=== PATIENT | male | born 1960 | race Caucasian/White ===

== ENCOUNTER 2017-05-26 09:17 | Emergency (ER) | payer OTHER, SELFPAY ==
[2017-05-26 09:30] VITALS: BP 119/83; PULSE 108; RESP 20; TEMP 36.8; O2SAT 96; BMI 28.1
--- NOTE | 2017-05-26 09:30 | XR_ITS ---
XR hand RT min 3V, HISTORY XR wrist RT min 3V Ordering Physician: Sancho Regan Patient Age: 56 years: Male HISTORY: ITS.REASON: FELL AT HOME TECHNIQUE: 3 views right wrist 3 views right hand COMPARISON : No prior. Patient denies prior fractures Findings: 3 VIEWS RIGHT WRIST 3 VIEWS RIGHT HAND The above images are reviewed together Understand patient has some pain at the proximal fifth finger and along the ulnar aspect of the hand. At the fifth finger note a mild broadening slight flaring towards the base of the proximal phalanx fifth finger. Possible slight exostosis versus overhang bone the lateral margin of the bone, just lateral to the fifth MCP joint. I am highly suspect of a prior fracture or injury here however the patient denied such per [facility]. If no fracture recalled this may merely congenital variation at this bone. No acute fracture identified at the proximal phalanx fifth finger. On the oblique view the wrist question slight lucency and mild angulation the mid fifth metacarpal, as if there has been an old minor fracture here.. Equivocal feature Otherwise conceivably could reflect a very subtle subtle early bone cyst but I believe less likely given the radiographic appearance. Not of acute significance There is also a fragment off the tip of the ulnar styloid more likely reflection of old trauma and fracture. Not acute finding. As margins appear corticated. Also understand majority of patient pain region of the anatomical snuffbox. No convincing fracture of navicular evident. The line at the lumpectomy most likely reflects a contour line but if there is pain focally at this does not box recommend splinting and follow-up. There is some mild swelling dorsally at the wrist. Carpal relationships appear normal. Distal radius appears intact and normal. IMPRESSION 1. Understand majority if pain is at the anatomical snuffbox. No convincing fracture of navicular on plain film but cannot exclude occult fracture given pain at the Snuffbox... Recommend splinting and follow-up 2. Proximal phalanx fifth finger demonstrates slight broadening at its proximal aspect with minimal focal osseous prominence or exostosis extending from the ulnar/medial margin of of its base.- I suspect old fracture sequela but patient denies history of fracture Also at fifth metacarpal question very subtle lucency in its midportion on the oblique view wrist. Question/suspect old fracture here vs or possible early subtle cystic feature?. These latter features may benefit from follow-up radiograph particularly if is pain at the fifth ray
--- NOTE | 2017-05-26 09:59 | HMH.EDUTC ---
[facility] [place] Clinical Impression: Wrist sprain Qualifiers: Encounter type: initial encounter Laterality: right Qualified Code(s): S63.501A - Unspecified sprain of right wrist, initial encounter Contusion of hand, right Qualifiers: Encounter type: initial encounter Qualified Code(s): S60.221A - Contusion of right hand, initial encounter Disposition: Home, Self-Care Condition on Discharge: Good Instructions: How to Use a Sling, DI for Wrist Sprain, DI for Contusion, How To Perform RICE (Rest, Ice, Compress, Elevate), How to Take Care of Your Splint Additional Instructions: * Rest * ice 15-20 mins 3-4 times a day * sling and splint for support and swelling until you see ortho. Be sure not too tight but not too loose either by checking your fingers like we discussed * Elevate as discussed as much as possible to help reduce swelling and therefore, pain * naproxen every 12 hours as needed for pain and inflammation. If you need something more, you can take tylenol every 4 hours as needed as long as your primary care provider has told you it is ok to take both. * No additional anti-inflammatories like motrin, aleve, advil with the above amount of naproxen. You CAN still take Tylenol every 4 hours as needed if you need something more for pain. Prescriptions: Naproxen 500 mg PO BID #20 tab Referrals: Keyur Rivera MD [Staff Physician] - (Call office today and schedule follow up appt. Let them know you were in [facility] [place], are in orthoglass splint and were told to follow up due to snuffbox tenderness.) Time of Disposition: 12:20 Medical Decision Making Vital Signs: 05/26/17 09:30 05/26/17 12:10 Temperature 98.2 F 98.7 F Temperature Source Temporal Artery Scan Pulse Rate 76 Pulse Rate [Right Radial] 108 H Respiratory Rate 20 20 Blood Pressure 120/73 Blood Pressure [Right Arm] 119/83 Blood Pressure Mean [Right Arm] 95 02 Sat by Pulse Oximetry 96 Oxygen Delivery Method Room Air Orders (Tests/Meds): ED MEDICATIONS Discontinued Medications Generic Name Dose Route Start Last Admin Trade Name Freq PRN Reason Stop Dose Admin Ketorolac Tromethamine 60 mg 05/26/17 10:44 05/26/17 10:44 Toradol 60mg/2ml Vial IM 05/26/17 10:45 60 mg ONCE ONE Administration ORDERS Category Date Time Status Wrist XR right minimum 3 views [XR wrist RT min 3V] Exams 05/26/17 09:30 Taken Stat XR hand RT min 3V Stat Exams 05/26/17 09:30 Taken - Radiology Data #1 Image(s): Wrist, Hand Image Reviewed: Yes I reviewed the patient's radiology image w/the ED provider 1035: Reviewed with Dr. Flores, ER . Neg wrist but unsure about right 4th proximal phalanx findings. Suggest discussing with radiologist. Called Wale. She will place yellow slip to have radiologist review. Pt aware of what we are waiting for. 1132: Spoke to Wale in radiology again. She did put in request. Radiologist in procedure but finishing up. Pt updated. Frustrated with wait. Pain improved w/ toradol. 1210: Dr. Harrison returned call. 4th proximal phalanx does not appear to be acute and most likely, due to old fracture/injury. No acute findings in wrist or hand but degree of tenderness, recommends splint and follow up with ortho for additional navicular views if pain not improved. - Isaiah Inquiry Pt receiving controlled substance: No [facility] [place] - General Stated complaint: fell 05/25/17 hurtright hand and wrist Time Seen by Provider: 05/26/17 09:45 Mode of Arrival: Family Vehicle Source of Information: Patient Limitations: No Limitations Description of Symptoms (Recalled from Triage Doc. by RN): pt states he fell last night on his right wrist. HEENT Symptoms (Recalled from RN notes): No Resp Symptoms (Recalled from RN notes): No Skin Symptoms (Recalled from RN notes): No MS Symptoms (Recalled from RN notes): Yes (right wrist pain) Functional Status (Recalled from RN notes): na - History of Present Illness Provider Complaint: c
[2017-05-26 12:10] VITALS: BP 120/73; PULSE 76; RESP 20; TEMP 37.1; O2SAT 100
== END 2017-05-26 12:46 | disposition home or self-care (01) ==
PROVIDERS: Emergency Provider Nurse Practitioner Family
DX: S63.501A Unspecified sprain of right wrist, initial encounter (principal); S60.221A Contusion of right hand, initial encounter; W19.XXXA Unspecified fall, initial encounter; Y92.9 Unspecified place or not applicable; Y99.9 Unspecified external cause status; E11.9 Type 2 diabetes mellitus without complications; I10 Essential (primary) hypertension; F17.210 Nicotine dependence, cigarettes, uncomplicated
CPT/HCPCS: 29125; 73110; 73130; 96372; 99202

== ENCOUNTER → 2017-06-04 09:29 | Outpatient (CLI) | payer OTHER, SELFPAY ==
--- NOTE | 2017-06-04 09:33 | XR_ITS ---
XR wrist RT w scaphoid HISTORY: Pain following injury ITS.REASON: follow up right wrist injury ORDERING PHYSICIAN: Roberto Carlos Harmon MD PATIENT AGE: 56 years COMPARISON: None FINDINGS: Standard images performed along with scaphoid view. No obvious fracture or dislocation. No lytic or blastic change or significant arthritic change. IMPRESSION: Negative right wrist. No obvious scaphoid fracture. If symptoms persist, CT or MRI may be of further value.
== END ==
PROVIDERS: PCP Family Medicine; Visit Provider Orthopaedic Surgery
DX: M25.531 Pain in right wrist (principal)
CPT/HCPCS: 73110

== ENCOUNTER 2017-06-04 10:13 | Outpatient (RCR) | payer OTHER, SELFPAY | END 2017-06-04 10:14 | disposition home or self-care (01) | LOC: OT 10:13 | PROVIDERS: PCP Family Medicine; Visit Provider Orthopaedic Surgery | DX: M25.531 Pain in right wrist (principal) | CPT/HCPCS: 97760 ==